=== PATIENT | male | born 2000 | race African-American/Black ===

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

== ENCOUNTER 2020-10-03 21:06 | Emergency (ER) | payer OTHER, BC ==
[~2020-10-03] VITALS: Ht 182.9 cm; Wt 63.5 kg
[2020-10-03 21:18] VITALS: BP 125/81; Ht 182.9 cm; Wt 63.5 kg
== END 2020-10-03 22:46 | disposition home or self-care (01) ==
LOC: ED 21:06
DX: S39.012A Strain of muscle, fascia and tendon of lower back, initial encounter (principal); S79.911A Unspecified injury of right hip, initial encounter; Y93.51 Activity, roller skating (inline) and skateboarding; Y93.89 Activity, other specified; Y92.89 Other specified places as the place of occurrence of the external cause; Y99.8 Other external cause status